=== PATIENT | male | born 1970 | race Hispanic/Latino ===

== ENCOUNTER 2018-10-08 13:14 | Emergency (ER) | payer SELFPAY ==
[2018-10-08] MEDS ORDERED: LIDOCAINE HCL 1% 20 ML VIAL ONE (13:24)
== END 2018-10-08 14:09 | disposition home or self-care (01) ==
LOC: EDH 13:14
DX: S61.012A Laceration without foreign body of left thumb without damage to nail, initial encounter (principal); W45.8XXA Other foreign body or object entering through skin, initial encounter; Y93.89 Activity, other specified; Y92.89 Other specified places as the place of occurrence of the external cause; Y99.8 Other external cause status
CPT/HCPCS: 12002